=== PATIENT | female | born 1965 | race African-American/Black ===

== ENCOUNTER 2016-10-26 11:02 | Emergency (ER) | payer OTHER ==
[~2016-10-26 11:02] MED LIST: FISH500C PO; MONT10TA2 PO; PRED20 PO; RED600TA PO; VITA100018 PO
[2016-10-26 11:04] VITALS: BP 117/82; PULSE 72; RESP 14; TEMP 98; O2SAT 100
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
== END 2016-10-26 11:52 | disposition home or self-care (01) ==
LOC: NEPK 11:02
DX: Z04.1 Encounter for examination and observation following transport accident (principal)
CPT/HCPCS: 99281